=== PATIENT | male | born 1975 | race Caucasian/White ===

== ENCOUNTER 2017-09-10 09:45 | Emergency (ER) | payer BC ==
[~2017-09-10] VITALS: Ht 177.8 cm; Wt 75.5 kg
[2017-09-10] MEDS ORDERED: CIPRO500 MG PO (10:40)
[2017-09-10 11:21] LABS: HEMATOCRIT 42.3 % (38.0-50.0); HEMOGLOBIN 14.2 G/DL (12.5-16.6); MCH 30.7 PG (29.0-34.0); MCHC 33.6 G/DL (30.0-36.0); MCV 91.6 FL (86-99); PLATELET COUNT 211 K/uL (156-360); RBC DIS.WIDTH-CV 12.7 % (11.8-14.6); RBC DIS.WIDTH-SD 42.5 % (39-53); RED BLOOD COUNT 4.62 M/uL (4.00-5.50); WHITE BLOOD COUNT 5.5 K/uL (4.1-10.2)
[2017-09-10 11:29] LABS: CHLORIDE 109 mEq/L (99-109); POTASSIUM 4.6 mEq/L (3.7-5.4); SODIUM 140 mEq/L (136-147)
[2017-09-10 11:31] LABS: GLUCOSE 93 mg/dL (70-99); TOTAL PROTEIN 6.6 g/dL (6.4-8.3)
[2017-09-10 11:33] LABS: TOTAL BILIRUBIN 0.3 mg/dL (0.0-1.0)
[2017-09-10 11:35] LABS: ALKALINE PHOSPHATASE 51 IU/L (3-129); CREATININE 0.7 mg/dL (0.6-1.3); GFR ESTIMATE (CALCULATED) > 59 mL/min/ (58.99-99999)
[2017-09-10 11:36] LABS: UREA NITROGEN (BUN) 12 mg/dL (9-23)
[2017-09-10 11:37] LABS: AST (GOT) 21 IU/L (2-34)
[2017-09-10 11:38] LABS: ALT (GPT) 31 IU/L (3-49)
[2017-09-10 12:35] VITALS: BP 114/74
== END 2017-09-10 13:53 | disposition home or self-care (01) ==
LOC: EME 09:45
PROVIDERS: Emergency Medicine Emergency Medical Services
DX: R19.7 Diarrhea, unspecified (principal); R11.0 Nausea; R10.9 Unspecified abdominal pain; F17.200 Nicotine dependence, unspecified, uncomplicated
CPT/HCPCS: 80053; 85027; 99281; 99284